=== PATIENT | female | born 1955 | race Caucasian/White ===

== ENCOUNTER 2019-09-16 14:59 | Outpatient (CLI) | payer BC, SELFPAY ==
[2019-09-16 15:33] LABS: Basophils Absolute Auto 0.1 K/mm3 (0.0-0.1); Basophils Percent Auto 0.7 % (0.2-1.2); Eosinophils Absolute Auto 0.2 K/mm3 (0-0.3); Eosinophils Percent Auto 2.2 % (0-4.4); Hematocrit 38.1 % (37.0-47.0); Hemoglobin 12.3 g/dL (12.0-15.0); Immature Granulocyte Absolute 0.01 K/mm3 (0.00-0.031); Immature Granulocyte Percent A 0.1 % (0-0.5); Lymphocytes Percent Auto 31.7 % (18.3-44.2); Mean Corpuscular HGB Conc 32.3 g/dl (32-36); Mean Corpuscular Hemoglobin 29.9 pg (26-34); Mean Corpuscular Volume 92.5 fl (80-100); Monocytes Absolute Auto 0.7 K/mm3 (0.1-0.6); Monocytes Percent Auto 9.7 % (2.6-8.5); Neutrophils Absolute Auto 3.9 K/mm3 (1.3-6.7); Neutrophils Percent Auto 55.6 % (45.5-73.1); Platelet Count Result 316 k/mm3 (150-375); Red Blood Count 4.12 M/mm3 (4.2-5.4); Red Cell Distribution Width 13.9 % (11.5-14.5); White Blood Count 6.9 K/mm3 (4.5-10.0)
[2019-09-16 15:44] LABS: Aspartate Amino Transferase 29 U/L (14-36); Blood Urea Nitrogen 25 mg/dL (7-17); Calcium 8.7 mg/dL (8.4-10.2); Carbon Dioxide 28 mmol/L (22-30); Chloride 102 mmol/L (98-107); Estimated Glomerular Filt Rate > 60; Glucose 102 mg/dL (65-105); Potassium 3.9 mmol/L (3.4-5.0); Sodium 137 mmol/L (137-145)
== END 2019-09-16 15:00 | disposition home or self-care (01) ==
PROVIDERS: PCP Family Medicine; Visit Provider Orthopaedic Surgery
DX: Z79.1 Long term (current) use of non-steroidal anti-inflammatories (NSAID) (principal)
CPT/HCPCS: 36415; 80048; 84450; 85025

== ENCOUNTER → 2021-01-25 15:40 | Outpatient (REF) | payer BC, SELFPAY | LOC: ANHLAB 15:40 | PROVIDERS: PCP Physician Assistant; Visit Provider Nurse Practitioner | DX: C44.321 Squamous cell carcinoma of skin of nose (principal); C44.311 Basal cell carcinoma of skin of nose | CPT/HCPCS: 88305 ==

== ENCOUNTER → 2022-03-11 09:03 | Outpatient (CLI) | payer MEDICARE, SELFPAY ==
--- NOTE | ~2022-03-11 | DEXA_ITS ---
Bone Density Report Name: JOSE FRANCISCO CURTIS Age: 66 Sex: Female Ethnicity: White Date of : 1955 Indication: postmenopausal; screening for osteoporosis; Referring Provider: DAX MURRAY Study: Bone densitometry was performed. Exam Date: March 11, 2022 Accession number: [id number] Bone Density: Region BMD T-score Z-score Classification AP Spine (L1-L4) 0.919 -1.2 0.7 Osteopenia Femoral Neck (Right) 0.713 -1.2 0.4 Osteopenia Total Hip (Right) 0.877 -0.5 0.8 Normal World Health Organization criteria for BMD impression classify patients as: Normal (T-score at or above -1.0), Osteopenia (T-score between -1.0 and -2.5), or Osteoporosis (T-score at or below -2.5). 10-year Fracture Risk(1): Major Osteoporotic Fracture 8.4% Hip Fracture 0.8% Reported Risk Factors: [place] (), Neck BMD=0.713, BMI=23.1 (1) FRAX(R) Version 3.08. Fracture probability calculated for an untreated patient. Fracture probability may be lower if the patient has received treatment. Clinical Information Provided by Patient: Has used the following medications: Vitamin D, Calcium Patient maximum height was 64 Menopause Age: 52 Drinks caffeinated beverages Onset of menses at age 14 Number of children 4 Missed period for more than 6 months in a row Impression: The patient has low bone mass, based on the Total Spine T-score. The patient has an estimated ten-year risk of hip fracture of 0.8% and an estimated ten-year risk of major fracture of 8.4%, based on the WHO FRAX algorithm. Discussion: BONE DENSITY IS LOW AT ONE OR MORE SKELETAL SITES. This patient's lowest T-score is low at one or more skeletal sites. It meets the World Health Organization's (WHO) criteria for ?low bone mass? (T-score between -1.0 and -2.5). The patient's 10-year risk of fracture as calculated by FRAX is less than the threshold where pharmacological therapy is recommended by the National Osteoporosis Foundation (NOF). However, all treatment decisions require clinical judgment and consideration of individual patient factors, including patient preferences, comorbidities, previous drug use, risk factors not captured in the FRAX model (e.g., frailty, falls, vitamin D deficiency, increased bone turnover, interval significant decline in bone density) and possible under or overestimation of fracture risk by FRAX. The patient should follow a healthful lifestyle (good nutrition with adequate calcium and vitamin D, and appropriate weight-bearing exercise). Follow-Up: Consider repeating this study in 2 to 3 years to reassess this patient's status, or sooner if there is some new clinical indication. Reported by: SILVA on 03/11/2022 9:14:00 AM. Reviewed, dictated and finalized at location A. CARRIE
== END ==
PROVIDERS: PCP Family Medicine; Visit Provider Family Medicine
DX: Z78.0 Asymptomatic menopausal state (principal); M85.88 Other specified disorders of bone density and structure, other site; M85.851 Other specified disorders of bone density and structure, right thigh
CPT/HCPCS: 77080

== ENCOUNTER 2025-06-07 17:43 | Emergency (ER) | payer MEDICARE, SELFPAY ==
--- NOTE | ~2025-06-07 | XR_ITS ---
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 Technique: 2 views obtained. Findings: Moderate left upper lobe infiltrate. No pneumothorax. Heart is normal size. Mediastinal and hilar contours are within normal limits. Bony thorax no acute abnormality. Impression: Left upper lobe pneumonia. Follow-up recommended to assess resolution Reviewed, dictated and finalized at location P. RINTENDENT DRILLING Impression: Left upper lobe pneumonia. Follow-up recommended to assess resolution
[2025-06-07 18:03] VITALS: BP 120/63; PULSE 81; RESP 16; TEMP 36.2; O2SAT 99
--- NOTE | 2025-06-07 18:29 | ED.URI ---
HPI - URI/Sore Throat General Chief Complaint: Upper Respiratory Infection Stated Complaint: COUGH Time Seen by Provider: 06/07/25 18:20 Source: patient and RN notes reviewed Mode of arrival: ambulatory Limitations: no limitations History of Present Illness HPI Narrative: 70-year-old female patient presents today with a 5 week history of intermittent cough that is exacerbated with talking and laughing as well as deep breath. She denies shortness of breath, fever, nasal congestion, but does report some intermittent postnasal drip as well. She has tried cough drops and Sudafed without much improvement. She was initially seen at an Urgent Care on 05/13/2025 where she was given prescriptions for doxycycline, Tessalon Perles, cetirizine, and famotidine. Patient has finished all of these prescriptions without much improvement in her symptoms. She denies history of asthma or COPD. She is a nonsmoker. Related Data Home Medications ?Medication ?Instructions ?Recorded ?Confirmed ?Last Taken ?Type aspirin 81 mg tablet,delayed 81 mg PO DAILY 08/03/20 06/07/25 Unknown History release (Adult Aspirin Regimen) calcium carbonate (Mukesh-Gest 200 mg PO BID 08/01/22 06/07/25 Unknown History Antacid) clobetasol 0.05 % topical ointment topical 10/22/24 Unknown History Allergies Allergy/AdvReac Type Severity Reaction Status Date / Time No Known Allergies Allergy Verified 06/07/25 17:58 [facility] Past Medical History Medical History Melanocytic nevus (~2002) back - biopsy report Breast density (~2014) scattered fibroglandular - mamm 07/10/14 Gallbladder sludge Common bile duct dilatation (~2017) Anxiety Bronchitis Surgical History Surgical History History of biopsy (~2002) back- biopsy- Melanocytic nevus Family History Family History Other Cerebrovascular accident H/O: hysterectomy Hypertension Lung cancer Skin cancer Social History Social History (Reviewed 06/07/25 @ 18:32 by Marcia L. Mihelcic, METAL ROLLING MILL OPERATOR, OPTIMIZATION ENGINEER) Smoking status: Never smoker Second hand tobacco smoke exposure: No Alcohol intake: current Alcohol use details: consume mixed drinks socially Substance use: never Substance use type: does not use Lack of Transportation: No Lack of Food: Never True Current Housing: I Have Housing Concerned About Future Housing: No Difficulty Paying Gas/Electric Bills: No Difficulty Paying for Meds: No Currently Unemployed: No Difficulty w/ Childcare or Family Care: No Living arrangements: with family Gender identity (if verbalized by the patient): Female Comments At time of signature, I have reviewed and agree with nursing past medical, surgical, social and family history unless otherwise noted. Please see nursing chart for further information. There is no relevant family history pertinent to the presenting complaint Exam Narrative: GENERAL: Well-appearing, well-nourished, and in no acute distress. HEAD: Normocephalic, atraumatic. EYES: EOMI. No redness or drainage. Conjunctivae normal. ENT: Mucous membranes pink and moist. Nares clear. No rhinorrhea. TMs normal bilaterally. Throat normal. Uvula midline. NECK: Normal AROM. Supple. No lymphadenopathy. CHEST: No respiratory distress. Clear to auscultation. HEART: Regular rate and rhythm. No murmur appreciated. EXTREMITIES: Normal range of motion. No edema. SKIN: Warm, dry, no rash. Capillary refill normal. Normal skin turgor. NEURO: No focal deficits. Alert and oriented x3. Gait steady. PSYCH: Normal affect. No signs of depression or anxiety. Course Course Level of Care: Express Care Visit Vital Signs Vital signs: Vital Signs Oxygen Delivery Room Air 06/07/25 17:54 Temperature 97.2 F L 06/07/25 18:03 Pulse Rate 81 06/07/25 18:03 Respiratory Rate 16 06/07/25 18:03 Blood Pressure 120/63 06/07/25 18:03 Pulse Oximetry 99 06/07/25 18:03 Oxygen Delivery Room Air 06/07/25 17:54 Reviewed MDM - URI/Sore Throat MDM Narrative Medical decision making narrative: 70-year-old female patient presents today with a 5 week history of intermittent cough that is exacerbated with talking and laughing as well as deep breath. She denies shortness of breath, fever, nasal congestion, but does report some intermittent postnasal drip as well. She has tried cough drops and Sudafed without much improvement. She was initially seen at an Urgent Care on 05/13/2025 where she was given prescriptions for doxycycline, Tessalon Perles, cetirizine, and famotidine. Patient has finished all of these prescriptions without much improvement in her symptoms. She denies history of asthma or COPD. She is a nonsmoker. Upon exam patient's lung auscultation is normal. Will do a chest x-ray since she has not had 1 since symptoms began 5 weeks ago. Chest x-ray shows left upper lobe pneumonia. Patient will be started on Augmentin and azithromycin as well as some tessalon for her cough. Recommend following up with her PCP for follow-up x-ray to ensure resolution of the pneumonia. Patient agrees with plan. Vital signs stable. Anticipatory guidance given. Differential Diagnosis Differential diagnosis: Likely upper respiratory infection, bronchitis and other (Pneumonia, post infectious cough) Imaging Data Radiologist's impression: ITS Impressions Chest X-Ray 06/07/25 18:41 Impression: Left upper lobe pneumonia. Follow-up recommended to assess resolution Critical Care Time Critical Care Time Critical Care Time: No Discharge Plan Discharge Clinical Impression: Pneumonia Qualifiers: Pneumonia type: due to unspecified organism Laterality: left Lung location: upper lobe of lung Qualified Code(s): J18.9 - Pneumonia, unspecified organism Patient Disposition: Home Condition: Stable Instructions: Antibiotic Form, Community Acquired Pneumonia (DC) Additional Instructions: Your x-ray shows pneumonia on the left side of your lungs. Please take both antibiotics as prescribed, at the same time. You can take the Tessalon Perles for cough if needed. It is recommended that you have a follow-up x-ray to ensure that your pneumonia has resolved. Please follow-up with your PCP in approximately 1 week. Patient Language: Japanese Prescriptions: New azithromycin 250 mg tablet 250 mg PO DAILY Qty: 6 0RF Rx Instructions: take 500 mg today (day 1), then 250 mg daily on days 2-5. benzonatate 200 mg capsule 200 mg PO TID PRN (Reason: cough) Qty: 20 0RF amoxicillin-pot clavulanate 875-125 mg tablet 1 tablet PO Q12H 5 Days Qty: 10 0RF No Action calcium carbonate [Mukesh-Gest Antacid] 200 mg calcium (500 mg) tablet,chewable 200 mg PO BID clobetasol 0.05 % ointment topical aspirin [Adult Aspirin Regimen] 81 mg tablet,delayed release (DR/EC) 81 mg PO DAILY sertraline 50 mg tablet 50 mg PO DAILY Qty: 90 4RF Follow-up/Referrals: Papito,MD Josefina [Primary Care Provider, Family Practice] Time of Disposition: 18:55
== END 2025-06-07 19:10 | disposition home or self-care (01) ==
PROVIDERS: Emergency Provider Nurse Practitioner; PCP Family Medicine
DX: J18.9 Pneumonia, unspecified organism (principal); F41.9 Anxiety disorder, unspecified; Z79.82 Long term (current) use of aspirin
CPT/HCPCS: 71046; 99213; G0463

== ENCOUNTER 2025-06-11 09:08 | Outpatient (CLI) | payer MEDICARE, SELFPAY ==
--- NOTE | ~2025-06-11 | XR_ITS ---
EXAMINATION: XR chest 2V, 06/11/2025 9:34 SENIOR CAREGIVER HISTORY: RECENT PNEUMONIA SINUS INFECTION COMPARISON: No comparisons available. Technique: 2 views obtained. Findings: Large left upper lobe infiltrate. No pneumothorax. Heart is normal size. Mediastinal and hilar contours are within normal limits. Bony thorax no acute abnormality. Impression: Probable left upper lobe pneumonia. Follow-up recommended to ensure resolution Reviewed, dictated and finalized at location P. OR CAREGIVER Impression: Probable left upper lobe pneumonia. Follow-up recommended to ensure resolution
--- OUTSIDE RECORDS SUMMARY | 2025-06-11 09:55 | XMS_ITS | Clinical Summary ---
Author Organization [facility] Address [address] [place] [address] Care Team Providers Care Clinic Nurse Name Role Phone Josefina Cobos MD Primary Care Provider [phone] Allergies No known active allergies Medications sertraline (ZOLOFT) 50 mg tablet Take 1 tablet (50 mg total) by mouth daily Active ASPIRIN ORAL Take 81 mg by mouth daily Active multivit-mins no.63/iron/foli c (M-VIT ORAL) One A Day Vitamin Active clobetasoL (TEMOVATE) 0.05 % ointmentIndicat ions:Lichenoid dermatitis Apply topically daily 30 g 2 Active calcium carbonate-vitam in D3 2,500 mg (1,000 mg elemental)-800 unit tablet Take by mouth Acti ve Active Problems Problem Noted Date Diagnosed Date Actinic keratosis 03/24/2025 Benign mole 03/24/2025 Chronic anxiety 03/24/2025 Osteoarthritis of left hip 03/24/2025 Skin neoplasm 03/24/2025 Vitamin D deficiency 03/24/2025 Trigger finger of all digits of both hands 03/24 Lichen sclerosus et atrophicus 07/17/2024 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 03/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 Overview (03/03/2022): S/p MOHS Atrophic vaginitis 02/24/2013 Encounters Date Type Department Care Team Description 03/24/2025 10:30 AM CDT Office Visit [facility] Medicine Obstetrics and Gynecology [address] [place] [address] Outpatient Health 7th Floor [address] [place] [id number] Diane Contreras MD Lichen sclerosus et atrophicus (Primary Dx) from Last 3 Months Medical History Medical History Date Comments Personal history of other me ntal and behavioral disorders History of depression - (Add ed by TW Conv) Family History Medical History Relation Name Comments Hypertension Brother Hypertension - (Added by TW Conv) Hypertension Mother Hypertension - (Added by TW Conv) Stroke Mother Stroke Syndrome - (Added by TW Conv) Diabetes Other Diabetes Mellit us - (Added by TW Conv) Hypertension Sister Hypertension - (Added by TW Conv) Relation Name Status Comments Brother Father Mother Other Sister Social History Tobacco Use Types Packs/Day Years Used Date Smoking Tobacco: Never Smokeless Tobacco: Never Tobacco Cessation:Counseling Given: Not Answered AUDIT-C Answer Date Recorded Q1: How often do you have a drink containing alc ohol? 2-4 times a month 05/16/2024 Q2: How many drinks containi ng alcohol do you have on a typical day when you are drinking? 1 or 2 05/16/2024 Q3: How often do you have si x or more drinks on one occasion? Never 05/16/2024 Personal Safety Answer Date Recorded Have you ever been in or are you currently in a harmful physical or emotional relationship or is someone making you feel afraid or unsafe? Denies 07/25/2024 Comments No Sex and Gender Information Value Date Recorded Sex Assigned at Not on file Legal Sex Female 1:19 AM BOTTLER HELPER Gender Identity Not on file Sexual Orientation Straight 03/17/2021 7: 25 PM CDT Obstetrics History Para Term AB IAB SAB Ectopic Multiple Livin g Live Births 4 4 3 1 4 4 Date Outcome GA Total Labor Labor/2nd/3rd Weight Sex Type Anes PTL Ann A1 A5 Name Clin 1984 M Vag-S pont Living 1985 Term M Vag-S pont Living 1987 Term F Vag-S pont Living 1989 Term M Vag-S pont Living Last Filed Vital Signs Vital Sign Reading Time Taken Comments Blood Pressure 111/65 03/24/2025 10:41 AM CDT Pulse 73 07/26/2024 9:00 AM BOTTLER HELPER Temperature 36.7 C (98 F) 07/25/2024 7:51 PM BOTTLER HELPER Respiratory Rate 15 07/26/2024 9:00 AM BOTTLER HELPER Oxygen Saturation 97% 07/26/2024 9:00 AM BOTTLER HELPER Inhaled Oxygen Concentration - - Weight 56.6 kg (124 lb 12.8 oz) 025 10:41 AM CDT Height 162.6 cm (5' 4) 03/24/2025 10:4 1 AM CDT Body Mass Index 21.42 03/24/2025 10:41 AM CDT Plan of Treatment Health Maintenance Due Date Last Done Comments Colon Cancer Screening-Colonoscopy 1955 Depression Screening 1955 Fall Risk Assessment 1955 Hepatitis C Screening 1955 Osteoporosis Screening-Bone Density Scan 1955 Hepatitis B Screening 1973 Pneumococcal vaccine 65+ (1 of 1 - PCV) 2005 Zoster Vaccine (1 of 2) 2005 Well Visit 65+ 2020 Breast Cancer Screening-Mammogram 05/01/2023 05/01/2022, 12/03/2020, 10/26/2017, Additional history exists Covid-19 Vaccine (2 - 2024-2 6 season) 2025 06/14/2021 Influenza Vaccine (#1) 2025 04/24/2018 DTaP/Tdap/Td Vaccine (2 - Td or Tdap) 10/10/2025 10/11/2015 Procedures Procedure Name Priority Date/Time Associated Diagnosis Comments SCREENING MAMMOGRAM BILATERAL W CODIE Schedule Routine, Read Routine (OP Routine) 05/01/2022 9:38 AM CDT Encounter for screening mammogram for malignant neoplasm of breast from Last 3 Months or Most Recently Relevant to Health Maintenance Results * SCREENING MAMMOGRAM BILATERAL W CODIE (05/01/2022 9:38 AM CDT) Anatomical Region Laterality Modality Breast Bilateral Mammography Narrative 05/02/2022 1:25 PM CDT Mammogram Technique: Bilateral Digital Breast Tomosynthesis, Bilateral C-view 2D Screening mammogram. Views obtained: bilateral craniocaudal and bilateral mediolateral oblique. Computer Aided Detection was performed. Mammogram Findings: The present examination has been compared to prior imaging studies performed at [facility] on 09/01/2016, 10/26/2017 and 12/03/2020. There are scattered areas of fibroglandular density. There is no suspicious abnormality in either breast. Impression: There is no mammographic evidence of malignancy. Annual screening mammography is recommended. OVERALL FINAL ASSESSMENT: BI-RADS CATEGORY 1: Negative. Procedure Note Fanta Knott MD - 05/02/2022 Mammogram Technique: Bilateral Digital Breast Tomosynthesis, Bilateral C-view 2D Screening mammogram. Views obtained: bilateral craniocaudal and bilateral mediolateral oblique. Computer Aided Detection was performed. Mammogram Findings: The present examination has been compared to prior imaging studies performed at [facility] on 09/01/2016, 10/26/2017 and 12/03/2020. There are scattered areas of fibroglandular density. There is no suspicious abnormality in either breast. Impression: There is no mammographic evidence of malignancy. Annual screening mammography is recommended. OVERALL FINAL ASSESSMENT: BI-RADS CATEGORY 1: Negative. us Dianemaria luz Contreras MD IMG MAMMO PROC EDURES Final Result from Last 3 Months or Most Recently Relevant to Health Maintenance Insurance [facility] MEDICARE [facility] Address: [address] [address] [place] [address] [facility] MDCR HMO REF UHC MEDICARE ADVANTAGE MEDICARE ADVANTAGE MEDICAL [facility] MEDICARE Address: [address] [address] [place] [address] Care Teams Clinic Nurse Relationship Specialty Start Date End Date Josefina Cobos MD PCP - General Family Medicine 03/17/21
== END 2025-06-11 09:09 | disposition home or self-care (01) ==
PROVIDERS: PCP Student in an Organized Health Care Education/Training Program; Visit Provider Student in an Organized Health Care Education/Training Program
DX: J18.9 Pneumonia, unspecified organism (principal)
CPT/HCPCS: 71046